=== PATIENT | male | born 1995 | race Caucasian/White ===

== ENCOUNTER 2018-01-15 08:23 | Day surgery (SDC) | payer MEDICAID ==
[~2018-01-15 08:23] MED LIST: CLINDAMYCIN 600 MG/D5W (PMX) 50 ML IVPB; CLINDAMYCIN 900 MG/50 ML D5W IVPB IVPB; LIDOCAINE 2% (SDV) 5 ML INJ; ROCURONIUM 50 MG INJ; SOD CHLORIDE 0.9% 1,000 ML IV
[2018-01-15] MEDS ORDERED: ACETAMINOPHEN 1000MG/100ML IV 100 ML (11:16)
[2018-01-15] MEDS ORDERED: PROPOFOL 100 ML (11:16)
[2018-01-15] MEDS ORDERED: DEXAMETHASONE 4 MG/ML 1 ML INJ (11:46)
[2018-01-15] MEDS ORDERED: ONDANSETRON 4 MG INJ (11:46)
[2018-01-15] MEDS ORDERED: MIDAZOLAM 1 MG/ML 2 ML INJ (11:53)
[2018-01-15] MEDS ORDERED: ROCURONIUM 50 MG INJ (11:53)
[2018-01-15] MEDS ORDERED: PROPOFOL 0 ML (11:53)
[2018-01-15] MEDS ORDERED: ROPIVACAINE 0.2% 20 ML VIAL (11:54)
[2018-01-15] MEDS: BUPIVACAINE 0.25%/EPI (SDV) 30 ML INJ (11:57)
[2018-01-15] MEDS ORDERED: SUGAMMADEX SODIUM 200 MG/2 ML VIAL IV (12:22)
[2018-01-15] MEDS ORDERED: KETOROLAC 30 MG INJ (12:22)
[2018-01-15] MEDS ORDERED: HYDROCODONE/APAP (5/325) TAB PO ×2 (12:30)
[2018-01-15] MEDS ORDERED: morphine 2 MG INJ IV (12:30)
[2018-01-15] MEDS ORDERED: KETOROLAC 30 MG INJ IV (12:30)
[2018-01-15] MEDS ORDERED: EPHEDrine SULFATE 50 MG/5 ML SYG IV (13:00)
[2018-01-15] MEDS ORDERED: MEPERIDINE 25 MG INJ IV (13:00)
[2018-01-15] MEDS ORDERED: MIDAZOLAM 1 MG/ML 2 ML INJ IV (13:00)
[2018-01-15] MEDS ORDERED: DIPHENHYDRAMINE 50 MG INJ IV (13:00)
[2018-01-15] MEDS ORDERED: FENTAnyl 50 MCG/ML VIAL IV ×2 (13:00)
[2018-01-15] MEDS ORDERED: METOCLOPRAMIDE 10 MG INJ IV (13:00)
[2018-01-15] MEDS ORDERED: HYDROmorphONE 1 MG/5 ML IV SYRINGE IV ×2 (13:00)
[2018-01-15] MEDS ORDERED: hydrALAzine 20 MG INJ IV (13:00)
[2018-01-15] MEDS ORDERED: LABETALOL HCL 20MG INJ IV (13:00)
[2018-01-15] MEDS ORDERED: OXYCODONE/ACETAMINOPHEN (5/325) TAB PO ×2 (13:00)
[2018-01-15] MEDS ORDERED: ALBUTEROL 0.083% (NEB) 2.5 MG/3 ML AMP HHN (13:00)
[2018-01-15] MEDS: HYDROmorphONE 1 MG/5 ML IV SYRINGE IV (13:18)
[2018-01-15] MEDS: ONDANSETRON 4 MG INJ IV ×2 (13:18→14:14)
[2018-01-15] MEDS: FENTAnyl 50 MCG/ML VIAL IV (13:18)
[2018-01-15] MEDS: KETOROLAC 30 MG INJ IV (13:19)
[2018-01-16] MEDS ORDERED: IBUPROFEN 600 MG TAB PO (06:00)
== END 2018-01-15 14:41 | disposition home or self-care (01) ==
LOC: SDS 08:23
DX: K80.10 Calculus of gallbladder with chronic cholecystitis without obstruction (principal); J45.909 Unspecified asthma, uncomplicated; F17.210 Nicotine dependence, cigarettes, uncomplicated
CPT/HCPCS: 47562; 88304